=== PATIENT | male | born 1985 | race African-American/Black ===

== ENCOUNTER 2016-12-06 15:31 | Inpatient (IN) | payer OTHER ==
[2016-12-06 16:45] VITALS: BMI 38.4
--- NOTE | 2016-12-06 18:43 | HP ---
CIWA Score - CIWA Score Nausea/Vomitin-Mild Nausea/No Vomiting Muscle Tremors: 4-Moderate,w/Arms Extend Anxiety: 4-Mod. Anxious/Guarded Agitation: 4-Moderately Restless Paroxysmal Sweats: 1-Minimal Palms Moist Orientation: 0-Oriented Tacttile Disturbances: 0-None Auditory Disturbances: 0-None Visual Disturbances: 0-None Headache: 0-None Present CIWA-Ar Total Score: 14 Admission ROS BHS - HPI Chief Complaint: WITHDRAWAL SX Allergies/Adverse Reactions: Allergies Allergy/AdvReac Type Severity Reaction Status Date / Time No Known Allergies Allergy Verified 12/06/16 17:17 History of Present Illness: 31 YEARS OLD MALE WITH LONG HISTORY OF ALCOHOL COCAINE NICOTINE DEPENDENCE, HAS HIV HYPERTENSION ASTHMA DEPRESSION IS ADMITTED TO DETOX Exam Limitations: No Limitations - Ebola screening Have you traveled outside of the country in the last 21 days: No Have you had contact with anyone from an Ebola affected area: No Have you been sick,other than usual withdrawal symptoms: No Do you have a fever: No - Review of Systems Constitutional: Chills, Changes in sleep, Weight Stable EENT: reports: No Symptoms Reported Respiratory: reports: SOB with Exertion Cardiac: reports: No Symptoms Reported GI: reports: Nausea, Poor Fluid Intake, Abdominal cramping : reports: No Symptoms Reported Musculoskeletal: reports: No Symptoms Reported Integumentary: reports: No Symptoms Reported Neuro: reports: Tremors Endocrine: reports: No Symptoms Reported Hematology: reports: No Symptoms Reported Psychiatric: reports: Judgement Intact, Orientated x3, Depressed Other Systems: Reviewed and Negative Patient History - Patient Medical History Hx Anemia: No Hx Asthma: Yes Hx Chronic Obstructive Pulmonary Disease (COPD): Yes Hx Cancer: No Hx Cardiac Disorders: No Hx Congestive Heart Failure: No Hx Hypertension: Yes Hx Hypercholesterolemia: No Hx Pacemaker: No HX Cerebrovascular Accident: No Hx Seizures: No Hx Dementia: No Hx Diabetes: No Hx Gastrointestinal Disorders: No Hx Liver Disease: No Hx Genitourinary Disorders: No Hx Sexually Transmitted Disorders: Yes (SYPHILIS 2013 TREATED) Hx Renal Disease (ESRD): No Hx Thyroid Disease: No Hx Human Immunodeficiency Virus (HIV): Yes Hx Hepatitis C: No Hx Depression: Yes (No medication) Hx Suicide Attempt: No Hx Bipolar Disorder: No Hx Schizophrenia: No - Patient Surgical History Past Surgical History: No - PPD History Previous Implant?: Yes Documented Results: Negative w/o proof Implanted On Prior [facility] Admission?: No PPD to be Administered?: No - Smoking Cessation Smoking history: Current every day smoker Have you smoked in the past 12 months: Yes Aproximately how many cigarettes per day: 10 Cigars Per Day: 0 Hx Chewing Tobacco Use: No Initiated information on smoking cessation: Yes 'Breaking Loose' booklet given: 12/06/16 - Substance & Tx. History Hx Alcohol Use: Yes Hx Substance Use: Yes Substance Use Type: Alcohol, Cocaine Hx Substance Use Treatment: Yes - Substances Abused Alcohol Route: Oral Frequency: Daily Amount used: Beer - (10) 24oz, Liquor 1 pt Age of first use: 19 Date of Last Use: 12/06/16 Cocaine Route: Smoking Frequency: 3-6 times per week Amount used: 5 bags Age of first use: 26 Date of Last Use: 12/05/16 Family Disease History - Family Disease History Family Disease History: [place]: Mother (), Other: Father (NO CONTACT), Mother, Brother (CONTACT) Admission Physical Exam S - Vital Signs Vital Signs: Vital Signs - 24 hr 12/06/16 16:42 Temperature 97.6 F Pulse Rate 86 Respiratory 20 Rate Blood Pressure 132/82 - Physical General Appearance: Yes: Appropriately Dressed, Mild Distress, Obese, Tremorous , Irritable, Sweating, Anxious HEENTM: Yes: Hearing grossly Normal, Normal ENT Inspection, Normocephalic, Normal Voice Respiratory: Yes: Chest Non-Tender, Lungs Clear, Normal Breath Sounds, No Respiratory Distress, No Accessory Muscle Use Neck: Yes: Supple, Trachea in good position Breast: Yes: Breasts Symetrical Cardiology: Yes: Regular Rhythm, Regular Rate, S1, S2 Abdominal: Yes: Non Tender, Soft Genitourinary: Yes: Within Normal Limits Back: Yes: Normal Inspection Musculoskeletal: Yes: full range of Motion, Gait Steady Extremities: Yes: Normal Inspection, Normal Range of Motion, Non-Tender, Tremors Neurological: Yes: Fully Oriented, Alert, Motor Strength 5/5, Normal Response, Depressed Affect Integumentary: Yes: Warm Lymphatic: Yes: Within Normal Limits - Diagnostic (1) Alcohol dependence with uncomplicated withdrawal Current Visit: Yes Status: Acute (2) Cocaine dependence, uncomplicated Current Visit: Yes Status: Chronic (3) HIV (human immunodeficiency virus infection) Current Visit: Yes Status: Chronic (4) Hypertension Current Visit: Yes Status: Chronic Qualifiers: Hypertension type: essential hypertension Qualified Code(s): I10 - Essential (primary) hypertension (5) Asthenia Current Visit: Yes Status: Chronic (6) Nicotine dependence Current Visit: Yes Status: Chronic Qualifiers: Nicotine product type: cigarettes Substance use status: in withdrawal Qualified Code(s): F17.213 - Nicotine dependence, cigarettes, with withdrawal (7) Depression (emotion) Current Visit: Yes Status: Suspected Qualifiers: Depression Type: dysthymia Qualified Code(s): F34.1 - Dysthymic disorder Cleared for Admission S - Detox or Rehab [facility] Level of Care: Medically Managed Detox Regimen/Protocol: Librium Urine Drug Screen - Results Drug Screen Negative: No Urine Drug Screen Results: ABHISHEK-Cocaine
[2016-12-06] MEDS ORDERED: MAG HYDROX/AL HYDROX/SIMETH 30 ML UNIT-DOSE CUP PO PRN (18:52)
[2016-12-06] MEDS ORDERED: ACETAMINOPHEN 325 MG TABLET (FP) PO PRN (18:52)
[2016-12-06] MEDS ORDERED: MAGNESIUM HYDROX 2400MG/30ML ORAL SUSPENSION 30 ML CUP PO PRN (18:52)
[2016-12-06] MEDS ORDERED: guaiFENesin/D-METHORPHAN HB 10 ML UNIT-DOSE CUPS PO PRN (18:52)
[2016-12-06] MEDS ORDERED: NICOTINE POLACRILEX 2 MG GUM BC PRN (18:52)
[2016-12-06] MEDS ORDERED: chlordiazePOXIDE HCL 25 MG CAPSULE PO PRN (18:52)
[2016-12-06] MEDS ORDERED: diphenhydrAMINE HCL 50 MG CAPSULE PO PRN (18:52)
[2016-12-06] MEDS ORDERED: MENTHOL/PHENOL 1 EACH UD MM PRN (18:52)
[2016-12-06] MEDS ORDERED: MAGNESIUM CITRATE 300 ML BOTTLE PO PRN (18:52)
[2016-12-06] MEDS ORDERED: IBUPROFEN 400 MG TABLET (FP) PO PRN (18:52)
[2016-12-06] MEDS ORDERED: LOPERAMIDE HCL 2 MG CAPSULE PO PRN (18:52)
[2016-12-06] MEDS ORDERED: P-EPHED 60MG/TRIPROLIDI 2.5MG TABLET PO PRN (18:52)
[2016-12-06] MEDS: THIAMINE HCL 100 MG TABLET (FP) PO SCH (22:34)
[2016-12-06] MEDS: chlordiazePOXIDE HCL 25 MG CAPSULE PO SCH (22:34)
[2016-12-07] MEDS: chlordiazePOXIDE HCL 25 MG CAPSULE PO SCH ×4 (05:18→22:47)
[2016-12-07 10:00] LABS: URINE APPEARANCE CLEAR; URINE BILIRUBIN NEGATIVE (NEGATIVE); URINE BLOOD NEGATIVE (NEGATIVE); URINE COLOR LTYELLOW; URINE GLUCOSE (UA) NEGATIVE (NEGATIVE); URINE KETONE NEGATIVE (NEGATIVE); URINE LEUK ESTERASE NEGATIVE (NEGATIVE); URINE NITRITE NEGATIVE (NEGATIVE); URINE PROTEIN NEGATIVE (NEGATIVE); URINE UROBILINOGEN NEGATIVE E.U./dl (0.2-1.0)
[2016-12-07] MEDS ORDERED: PATIENT'S OWN MEDICATION (NON-FORMULARY) (Darunavir/Cobicistat [Prezcobix 800 Mg-150 Mg Ta PO SCH (10:00)
[2016-12-07] MEDS ORDERED: PATIENT'S OWN MEDICATION (NON-FORMULARY) (Dolutegravir Sodium 50 MG) PO SCH (10:00)
[2016-12-07] MEDS ORDERED: PATIENT'S OWN MEDICATION (NON-FORMULARY) (Tenofovir Disoproxil Fumarate [Viread -] 300 MG) PO SCH (10:00)
--- NOTE | 2016-12-07 10:01 | PN ---
[facility] CIWA - CIWA Score Nausea/Vomitin-No Nausea/No Vomiting Muscle Tremors: 4-Moderate,w/Arms Extend Anxiety: 4-Mod. Anxious/Guarded Agitation: 4-Moderately Restless Paroxysmal Sweats: 3 Orientation: 0-Oriented Tacttile Disturbances: 0-None Auditory Disturbances: 0-None Visual Disturbances: 0-None Headache: 0-None Present CIWA-Ar Total Score: 15 BHS Progress Note (SOAP) Subjective: Anxiety,tremors,sweating,interrupted sleep,restless Objective: 12/07/16 10:00 Vital Signs - 8 hr 12/07/16 12/07/16 12/07/16 03:24 06:14 09:29 Temperature 97.3 F L 97.1 F L Pulse Rate 73 76 Respiratory 18 18 18 Rate Blood Pressure 151/86 134/90 Assessment: 12/07/16 10:01 Withdrawal sx. Plan: Continue detox
[2016-12-07 10:28] LABS: MCH 28.8 pg (25.7-33.7); MCHC 31.8 g/dl (32.0-35.9); MEAN CELL VOLUME 90.4 fl (80-96); MEAN PLT VOLUME 10.8 fl (7.5-11.1); PLATELET COUNT 162 K/MM3 (134-434); RDW 13.4 % (11.9-15.9); WHITE BLOOD COUNT 7.7 K/mm3 (4.0-10.0)
[2016-12-07] MEDS: PATIENT'S OWN MEDICATION (NON-FORMULARY) (Lisinopril/Hydrochlorothiazide [Lisinopril-Hctz PO SCH (10:46)
[2016-12-07] MEDS: PRENATAL VITAMINS W/ FOLIC ACID TABLET (FP) PO SCH (10:46)
[2016-12-07] MEDS: NICOTINE 14 MG/24 HOURS TOPICAL PATCH TD SCH (10:47)
[2016-12-07 11:24] LABS: ALBUMIN 3.5 g/dl (3.4-5.0); ALK PHOS 55 U/L (45-117); ANION GAP 9 (8-16); BILIRUBIN,TOTAL 0.5 mg/dL (0.2-1.0); CALCIUM 8.7 mg/dL (8.5-10.1); CO2 25 mmol/L (21-32); COCKROFT - GAULT 202.01; CREATININE 0.9 mg/dL (0.7-1.3); GLUCOSE,RANDOM 121 mg/dL (74-106); SGOT/AST 16 U/L (15-37); SGPT/ALT 32 U/L (12-78); TOT PROT 7.1 g/dl (6.4-8.2)
--- NOTE | 2016-12-07 11:37 | EKG ---
Test Reason : Blood Pressure : / mmHG Vent. Rate : 082 BPM Atrial Rate : 082 BPM P-R Int : 174 ms QRS Dur : 118 ms QT Int : 396 ms P-R-T Axes : 040 061 022 degrees QTc Int : 462 ms NORMAL SINUS RHYTHM NON-SPECIFIC INTRA-VENTRICULAR CONDUCTION DELAY BORDERLINE ECG NO PREVIOUS ECGS AVAILABLE Confirmed by MEENU RUCKER, VALERIE ([id number]) on 12/07/2016 11:37:18 AM Referred By: Confirmed By:VALERIE CORRIGAN MD
--- NOTE | 2016-12-07 11:56 | CONSULT ---
[facility] Psychiatric Consult - Data Date of interview: 12/07/16 Admission source: [facility] Identifying data: Mr Last is a 31 years old single Black male, unemployed on public assistance, living in an [facility] seeking detox treatment for alcohol and cocaine Substance Abuse History: Reports that he started drinking alcohol at age 19, consumes one pint of liquor & 10x 24oz of beer daily. Last drink on 12/06/16. Started smoking crack cocaine at age 26, consumes 5 bags 3-6 times weekly. Last smoked on 12/05/16. Smokes 10 cogarettes daily Medical History: Significant for Asthma, HTN, HIV and treatment for Syphilis Psychiatric History: Reports that he started receiving treatment for depression in his youth. Reports 3-4 previous psychiatric admissions for depression & SI all to [facility]. Most recent one was last month and was discharged on Prozac 10 mg po daily. Reports that in the past, he has been on Depakote, Seroquel and Risperdal. Feels somewhat irritable at present. However, denies feeling depressed Mental Status Exam - Mental Status Exam Alert and Oriented to: Time, Place, Person Cognitive Function: Fair Patient Appearance: Well Groomed Mood: Irritable Affect: Appropriate Patient Behavior: Cooperative Speech Pattern: Clear Voice Loudness: Normal Thought Process: Intact, Goal Oriented Hallucinations: Denies Suicidal Ideation: Denies Homicidal Ideation: Denies Insight/Judgement: Poor Sleep: Fair Appetite: Good Muscle strength/Tone: Normal Gait/Station: Normal Psychiatric Findings - Problem List ([place] 1, 2,3) (1) MDD (major depressive disorder), recurrent episode, moderate Current Visit: Yes Status: Acute (2) Alcohol dependence with uncomplicated withdrawal Current Visit: Yes Status: Acute (3) Cocaine dependence, uncomplicated Current Visit: Yes Status: Chronic (4) Nicotine dependence Current Visit: Yes Status: Acute (5) HIV (human immunodeficiency virus infection) Current Visit: Yes Status: Chronic (6) Hypertension Current Visit: Yes Status: Chronic Qualifiers: Hypertension type: essential hypertension Qualified Code(s): I10 - Essential (primary) hypertension (7) Asthma Current Visit: Yes Status: Acute - Initial Treatment Plan Initial Treatment Plan: 1) Continue Prozac 10 mg po daily. 2) Continue inpatient detoxification
[2016-12-07] MEDS: PATIENT'S OWN MEDICATION (NON-FORMULARY) (Tenofovir Disoproxil Fumarate [Viread -] 300 MG) PO SCH (13:06)
[2016-12-07] MEDS: FLUoxetine HCL 10 MG CAPSULE (FP) PO SCH (13:06)
[2016-12-07] MEDS: PATIENT'S OWN MEDICATION (NON-FORMULARY) (Darunavir/Cobicistat [Prezcobix 800 Mg-150 Mg Ta PO SCH (13:07)
[2016-12-07] MEDS: PATIENT'S OWN MEDICATION (NON-FORMULARY) (Dolutegravir Sodium 50 MG) PO SCH (13:07)
[2016-12-07] MEDS: THIAMINE HCL 100 MG TABLET (FP) PO SCH (22:47)
[2016-12-08] MEDS: chlordiazePOXIDE HCL 25 MG CAPSULE PO SCH ×3 (06:49→17:17)
[2016-12-08] MEDS: FLUoxetine HCL 10 MG CAPSULE (FP) PO SCH (10:41)
[2016-12-08] MEDS: PRENATAL VITAMINS W/ FOLIC ACID TABLET (FP) PO SCH (10:41)
[2016-12-08] MEDS: PATIENT'S OWN MEDICATION (NON-FORMULARY) (Lisinopril/Hydrochlorothiazide [Lisinopril-Hctz PO SCH (10:41)
[2016-12-08] MEDS: NICOTINE 14 MG/24 HOURS TOPICAL PATCH TD SCH (10:42)
[2016-12-08] MEDS: PATIENT'S OWN MEDICATION (NON-FORMULARY) (Darunavir/Cobicistat [Prezcobix 800 Mg-150 Mg Ta PO SCH (13:53)
[2016-12-08] MEDS: PATIENT'S OWN MEDICATION (NON-FORMULARY) (Dolutegravir Sodium 50 MG) PO SCH (13:53)
[2016-12-08] MEDS: PATIENT'S OWN MEDICATION (NON-FORMULARY) (Tenofovir Disoproxil Fumarate [Viread -] 300 MG) PO SCH (13:55)
--- NOTE | 2016-12-08 14:17 | PN ---
[facility] CIWA - CIWA Score Nausea/Vomitin-No Nausea/No Vomiting Muscle Tremors: 3 Anxiety: 4-Mod. Anxious/Guarded Agitation: 4-Moderately Restless Paroxysmal Sweats: 3 Orientation: 0-Oriented Tacttile Disturbances: 0-None Auditory Disturbances: 0-None Visual Disturbances: 0-None Headache: 0-None Present CIWA-Ar Total Score: 14 S Progress Note (SOAP) Subjective: Anxiety,tremors,sweating,interrupted sleep,restless Objective: 12/08/16 14:16 Vital Signs - 8 hr 12/08/16 12/08/16 12/08/16 06:17 09:50 13:12 Temperature 97.9 F 97.8 F 97.5 F L Pulse Rate 76 82 85 Respiratory 16 18 20 Rate Blood Pressure 139/86 130/81 133/84 Laboratory Last Values WBC 7.7 K/mm3 (4.0-10.0) 12/07/16 07:00 RBC 4.28 M/mm3 (4.00-5.60) 12/07/16 07:00 Hgb 12.3 GM/dL (11.7-16.9) 12/07/16 07:00 Hct 38.7 % (35.4-49) 12/07/16 07:00 MCV 90.4 fl (80-96) 12/07/16 07:00 MCHC 31.8 g/dl (32.0-35.9) L 12/07/16 07:00 RDW 13.4 % (11.9-15.9) 12/07/16 07:00 Plt Count 162 K/MM3 (134-434) 12/07/16 07:00 MPV 10.8 fl (7.5-11.1) 12/07/16 07:00 Sodium 142 mmol/L (136-145) 12/07/16 07:00 Potassium 4.0 mmol/L (3.5-5.1) 12/07/16 07:00 Chloride 108 mmol/L (98-107) H 12/07/16 07:00 Carbon Dioxide 25 mmol/L (21-32) 12/07/16 07:00 Anion Gap 9 (8-16) 12/07/16 07:00 BUN 21 mg/dL (7-18) H 12/07/16 07:00 Creatinine 0.9 mg/dL (0.7-1.3) 12/07/16 07:00 Creat Clearance w eGFR > 60 (>60) 12/07/16 07:00 Random Glucose 121 mg/dL (74-106) H 12/07/16 07:00 Calcium 8.7 mg/dL (8.5-10.1) 12/07/16 07:00 Total Bilirubin 0.5 mg/dL (0.2-1.0) 12/07/16 07:00 AST 16 U/L (15-37) 12/07/16 07:00 ALT 32 U/L (12-78) 12/07/16 07:00 Alkaline Phosphatase 55 U/L (45-117) 12/07/16 07:00 Total Protein 7.1 g/dl (6.4-8.2) 12/07/16 07:00 Albumin 3.5 g/dl (3.4-5.0) 12/07/16 07:00 Urine Color Ltyellow 12/07/16 08:00 Urine Appearance Clear 12/07/16 08:00 Urine pH 5.0 (5.0-8.0) 12/07/16 08:00 Ur Specific [place] 1.025 (1.005-1.025) 12/07/16 08:00 Urine Protein Negative (NEGATIVE) 12/07/16 08:00 Urine Glucose (UA) Negative (NEGATIVE) 12/07/16 08:00 Urine Ketones Negative (NEGATIVE) 12/07/16 08:00 Urine Blood Negative (NEGATIVE) 12/07/16 08:00 Urine Nitrite Negative (NEGATIVE) 12/07/16 08:00 Urine Bilirubin Negative (NEGATIVE) 12/07/16 08:00 Urine Urobilinogen Negative E.U./dl (0.2-1.0) 12/07/16 08:00 Ur Leukocyte Esterase Negative (NEGATIVE) 12/07/16 08:00 RPR Titer Reactive 1:1 (NONREACTIVE) H 12/07/16 07:00 T.pallidum Ab (MHA) Reactive (NONREACTIVE) 12/07/16 07:00 labs noted Assessment: 12/08/16 14:16 Withdrawal sx. Plan: Continue detox
[2016-12-08] MEDS: chlordiazePOXIDE 5 MG CAPSULE PO SCH (23:12)
[2016-12-08] MEDS: THIAMINE HCL 100 MG TABLET (FP) PO SCH (23:12)
[2016-12-08] MEDS: hydrOXYzine PAMOATE 50 MG CAPSULE (FP) PO PRN (23:20)
[2016-12-09] MEDS ORDERED: ALBUTEROL SO4 6.7 GM HFA INHALER IH ONE (00:21)
[2016-12-09] MEDS ORDERED: ALBUTEROL SO4 2.5/IPRATROPIUM 0.5 INH SOL 3 ML VIAL.NEB. NEB PRN (00:25)
[2016-12-09] MEDS ORDERED: ALBUTEROL SO4 6.7 GM HFA INHALER IH PRN (00:25)
[2016-12-09] MEDS: chlordiazePOXIDE 5 MG CAPSULE PO SCH ×3 (05:52→17:40)
[2016-12-09] MEDS: PRENATAL VITAMINS W/ FOLIC ACID TABLET (FP) PO SCH (10:35)
[2016-12-09] MEDS: FLUoxetine HCL 10 MG CAPSULE (FP) PO SCH (10:35)
[2016-12-09] MEDS: PATIENT'S OWN MEDICATION (NON-FORMULARY) (Lisinopril/Hydrochlorothiazide [Lisinopril-Hctz PO SCH (10:35)
[2016-12-09] MEDS: NICOTINE 14 MG/24 HOURS TOPICAL PATCH TD SCH (10:37)
[2016-12-09] MEDS: PATIENT'S OWN MEDICATION (NON-FORMULARY) (Darunavir/Cobicistat [Prezcobix 800 Mg-150 Mg Ta PO SCH (13:53)
[2016-12-09] MEDS: PATIENT'S OWN MEDICATION (NON-FORMULARY) (Dolutegravir Sodium 50 MG) PO SCH (13:53)
[2016-12-09] MEDS: PATIENT'S OWN MEDICATION (NON-FORMULARY) (Tenofovir Disoproxil Fumarate [Viread -] 300 MG) PO SCH (13:53)
--- NOTE | 2016-12-09 17:42 | PN ---
BHS Progress Note (SOAP) Subjective: Tremors. Objective: PT. A & O X 3, OBSERVED AMBULATING ON UNIT. 12/09/16 17:40 Vital Signs Temperature 97.8 F 12/09/16 13:03 Pulse Rate 86 12/09/16 13:03 Respiratory Rate 18 12/09/16 13:03 Blood Pressure 119/76 12/09/16 13:03 O2 Sat by Pulse Oximetry (%) Laboratory Tests 12/07/16 12/07/16 12/07/16 07:00 07:00 07:00 WBC 7.7 RBC 4.28 Hgb 12.3 Hct 38.7 MCV 90.4 MCHC 31.8 L RDW 13.4 Plt Count 162 MPV 10.8 Sodium 142 Potassium 4.0 Chloride 108 H Carbon Dioxide 25 Anion Gap 9 BUN 21 H Creatinine 0.9 Creat Clearance w eGFR > 60 Random Glucose 121 H Calcium 8.7 Total Bilirubin 0.5 AST 16 ALT 32 Alkaline Phosphatase 55 Total Protein 7.1 Albumin 3.5 Urine Color Urine Appearance Urine pH Ur Specific [place] Urine Protein Urine Glucose (UA) Urine Ketones Urine Blood Urine Nitrite Urine Bilirubin Urine Urobilinogen Ur Leukocyte Esterase RPR Titer Reactive 1:1 H T.pallidum Ab (MHA) Reactive 12/07/16 08:00 WBC RBC Hgb Hct MCV MCHC RDW Plt Count MPV Sodium Potassium Chloride Carbon Dioxide Anion Gap BUN Creatinine Creat Clearance w eGFR Random Glucose Calcium Total Bilirubin AST ALT Alkaline Phosphatase Total Protein Albumin Urine Color Ltyellow Urine Appearance Clear Urine pH 5.0 Ur Specific [place] 1.025 Urine Protein Negative Urine Glucose (UA) Negative Urine Ketones Negative Urine Blood Negative Urine Nitrite Negative Urine Bilirubin Negative Urine Urobilinogen Negative Ur Leukocyte Esterase Negative RPR Titer T.pallidum Ab (MHA) LABS NOTED. RESULT OF RPR NOTED. PATIENT TREATED IN 2012 FOR SYPHILIS. 12/09/16 17:42 Assessment: 12/09/16 17:41 WITHDRAWAL SYMPTOMS. Plan: CONTINUE DETOX.
[2016-12-09] MEDS: THIAMINE HCL 100 MG TABLET (FP) PO SCH (22:41)
[2016-12-09] MEDS: chlordiazePOXIDE HCL 10 MG CAPSULE PO SCH (22:41)
[2016-12-09] MEDS: hydrOXYzine PAMOATE 50 MG CAPSULE (FP) PO PRN (23:51)
[2016-12-10] MEDS: chlordiazePOXIDE HCL 10 MG CAPSULE PO SCH (05:56)
[2016-12-10 06:26] VITALS: BP 122/80; PULSE 71; TEMP 97.3
--- NOTE | 2016-12-10 13:23 | DS ---
[facility] Detox Discharge Summary Admission Date: 12/06/16 Discharge Date: 12/10/16 - History Present History: Alcohol Dependence, Cocaine Dependence Pertinent Past History: Asthma COPD HIV HTN - Physical Exam Results Vital Signs: Vital Signs Temperature 97.3 F L 12/10/16 06:25 Pulse Rate 71 12/10/16 06:25 Respiratory Rate 18 12/10/16 06:25 Blood Pressure 122/80 12/10/16 06:25 O2 Sat by Pulse Oximetry (%) Pertinent Admission Physical Exam Findings: Withdrawal symptoms Laboratory Tests 12/07/16 12/07/16 12/07/16 07:00 07:00 07:00 WBC 7.7 RBC 4.28 Hgb 12.3 Hct 38.7 MCV 90.4 MCHC 31.8 L RDW 13.4 Plt Count 162 MPV 10.8 Sodium 142 Potassium 4.0 Chloride 108 H Carbon Dioxide 25 Anion Gap 9 BUN 21 H Creatinine 0.9 Creat Clearance w eGFR > 60 Random Glucose 121 H Calcium 8.7 Total Bilirubin 0.5 AST 16 ALT 32 Alkaline Phosphatase 55 Total Protein 7.1 Albumin 3.5 Urine Color Urine Appearance Urine pH Ur Specific [place] Urine Protein Urine Glucose (UA) Urine Ketones Urine Blood Urine Nitrite Urine Bilirubin Urine Urobilinogen Ur Leukocyte Esterase RPR Titer Reactive 1:1 H T.pallidum Ab (MHA) Reactive 12/07/16 08:00 WBC RBC Hgb Hct MCV MCHC RDW Plt Count MPV Sodium Potassium Chloride Carbon Dioxide Anion Gap BUN Creatinine Creat Clearance w eGFR Random Glucose Calcium Total Bilirubin AST ALT Alkaline Phosphatase Total Protein Albumin Urine Color Ltyellow Urine Appearance Clear Urine pH 5.0 Ur Specific [place] 1.025 Urine Protein Negative Urine Glucose (UA) Negative Urine Ketones Negative Urine Blood Negative Urine Nitrite Negative Urine Bilirubin Negative Urine Urobilinogen Negative Ur Leukocyte Esterase Negative RPR Titer T.pallidum Ab (MHA) Labs noted - Treatment Hospital Course: Detox Protocol Followed, Detoxed Safely, Responded well, Discharged Condition Good - Medication Discharge Medications: Ambulatory Orders Darunavir/Cobicistat [Prezcobix 800 mg-150 mg Tablet] 1 each PO DAILY 12/06/16 Dolutegravir Sodium [Tivicay] 50 mg PO DAILY 12/06/16 Lisinopril/Hydrochlorothiazide [Lisinopril-Hctz 10-12.5 mg Tab] 1 tab PO DAILY 12/06/16 Tenofovir Disoproxil Fumarate [Viread] 300 mg PO DAILY 12/06/16 Fluoxetine HCl [Prozac -] 10 mg PO DAILY #30 cap 12/07/16 - Diagnosis (1) Alcohol dependence with uncomplicated withdrawal Status: Acute (2) Asthma Status: Chronic Qualifiers: Asthma severity: mild intermittent (3) MDD (major depressive disorder), recurrent episode, moderate Status: Chronic (4) Nicotine dependence Status: Chronic (5) Cocaine dependence, uncomplicated Status: Chronic (6) HIV (human immunodeficiency virus infection) Status: Chronic (7) Hypertension Status: Chronic Qualifiers: Hypertension type: essential hypertension Qualified Code(s): I10 - Essential (primary) hypertension - AMA Did Patient Leave Against Medical Advice: No
== END 2016-12-10 09:15 | disposition home or self-care (01) | DRG 774 ==
LOC: YASAS 15:31 → Y3N 17:23
PROVIDERS: ADMIT Internal Medicine Addiction Medicine; ATTEND Internal Medicine
PROC: HZ2ZZZZ Detoxification Services for Substance Abuse Treatment (ICD-10-PCS; principal; 2016-12-06)
DX: F10.230 Alcohol dependence with withdrawal, uncomplicated (principal); F14.20 Cocaine dependence, uncomplicated; F17.210 Nicotine dependence, cigarettes, uncomplicated; F33.1 Major depressive disorder, recurrent, moderate; J45.20 Mild intermittent asthma, uncomplicated; J44.9 Chronic obstructive pulmonary disease, unspecified; Z21 Asymptomatic human immunodeficiency virus [HIV] infection status; I10 Essential (primary) hypertension; E66.9 Obesity, unspecified; Z68.38 Body mass index [BMI] 38.0-38.9, adult; Z87.438 Personal history of other diseases of male genital organs
CPT/HCPCS: 36415; 80053; 81003; 85027; 86593; 86780; 93005; 93010

== ENCOUNTER 2020-08-27 13:53 | Emergency (ER) | payer OTHER ==
[2020-08-27 14:21] VITALS: BP 135/88; PULSE 98; TEMP 97.9; BMI 22.4
[2020-08-27 16:26] LABS: BASO % 0.3 % (0-2.0); EOS % 0.6 % (0-4.5); HEMATOCRIT 34.7 % (35.4-49); LYMPH % 14.3 % (8-40); MCH 27.7 pg (25.7-33.7); MCHC 31.6 g/dl (32.0-35.9); MEAN CELL VOLUME 87.7 fl (80-96); MEAN PLT VOLUME 10.9 fl (7.5-11.1); MONO % 11.1 % (3.8-10.2); NEUT % 73.7 % (42.8-82.8); PLATELET COUNT 183 K/MM3 (134-434); RBC 3.96 M/mm3 (4.00-5.60); RDW 13.4 % (11.9-15.9); WHITE BLOOD COUNT 5.6 K/mm3 (4.0-10.0)
[2020-08-27 16:51] LABS: CHLORIDE 108 mmol/L (98-107); POTASSIUM 3.7 mmol/L (3.5-5.1); SODIUM 143 mmol/L (136-145)
[2020-08-27 16:53] LABS: CALCIUM 8.7 mg/dL (8.5-10.1)
[2020-08-27 16:54] LABS: ALBUMIN 3.3 g/dl (3.4-5.0); ANION GAP 7 MMOL/L (8-16); BLOOD UREA NITROGEN 10.9 mg/dL (7-18); CO2 28 mmol/L (21-32); GLUCOSE,RANDOM 114 mg/dL (74-106); LIPASE 92 U/L (73-393)
[2020-08-27 16:56] LABS: CREATININE 0.9 mg/dL (0.55-1.3); SGOT/AST 32 U/L (15-37); SGPT/ALT 34 U/L (13-61)
[2020-08-27 16:58] LABS: BILIRUBIN,TOTAL 0.7 mg/dL (0.2-1); TOT PROT 9.2 g/dl (6.4-8.2)
[2020-08-27 16:59] LABS: ALK PHOS 87 U/L (45-117)
[2020-08-27] MEDS ORDERED: DOXYCYCLINE HYCLATE 100 MG CAPSULE PO ONE ×2 (18:12→18:14)
[2020-08-27] MEDS ORDERED: cefTRIAXone SODIUM 1 GM VIAL ONE (18:15)
[2020-08-27] MEDS ORDERED: LIDOCAINE HCL 2% (20ML MULTI-DOSE VIAL) ONE (18:15)
== END 2020-08-27 19:09 | disposition home or self-care (01) ==
LOC: JER 13:53
DX: R42 Dizziness and giddiness (principal); B34.9 Viral infection, unspecified
CPT/HCPCS: 36415; 71046-TC-FY; 80053; 82272; 82550; 83690; 84484; 85025; 86359; 86360; 87491; 87591; 87804; 93005; 93010; 99284-25; C9803; U0003